=== PATIENT | male | born 1985 | race Hispanic/Latino ===

== ENCOUNTER 2017-11-28 13:15 | Emergency (ER) | payer OTHER ==
[2017-11-28] MEDS ORDERED: Ibuprofen 800 MG TAB ONE (13:50)
--- NOTE | 2017-11-28 14:01 | RAD ---
LEFT ANKLE THREE VIEWS: HISTORY: A 31-year-old male with a history of left ankle pain following an injury. FINDINGS: Minimal lateral and anterior soft tissue swelling. No fracture or dislocation. IMPRESSION: No fracture or dislocation. Minimal soft tissue swelling. POS: C
== END 2017-11-28 14:50 | disposition home or self-care (01) ==
LOC: NAV ERS 13:15
DX: S93.402A Sprain of unspecified ligament of left ankle, initial encounter (principal); I10 Essential (primary) hypertension; F17.210 Nicotine dependence, cigarettes, uncomplicated; X50.1XXA Overexertion from prolonged static or awkward postures, initial encounter